=== PATIENT | female | born 1940 | race Caucasian/White ===

== ENCOUNTER 2017-02-08 11:06 | Emergency (ER) | payer MEDICARE ==
[~2017-02-08] VITALS: Ht 168.9 cm; Wt 102.0 kg
[~2017-02-08 11:06] MED LIST: AMLODIPINE10 MG PO; AMLODIPINE5 MG PO; ASPIRIN81 MG PO; CHOLESTEROL DEFENSE PO; HYDROCHLOROT12.5 MG PO; PRAVASTATIN10 MG PO
[2017-02-08] MEDS ORDERED: ULTRAM50 M1 PO (14:04)
[2017-02-08 14:14] VITALS: BP 132/68
== END 2017-02-08 14:20 | disposition home or self-care (01) ==
LOC: ED 11:06
DX: S20.212A Contusion of left front wall of thorax, initial encounter (principal); W01.0XXA Fall on same level from slipping, tripping and stumbling without subsequent striking against object, initial encounter; Y93.01 Activity, walking, marching and hiking; Y92.002 Bathroom of unspecified non-institutional (private) residence as the place of occurrence of the external cause

== ENCOUNTER 2020-08-12 07:24 | Emergency (ER) | payer MEDICARE ==
[~2020-08-12] VITALS: Ht 168.9 cm; Wt 99.0 kg
[~2020-08-12 07:24] MED LIST changes: +ULTRAM50 M1 PO
[2020-08-12 07:46] LABS: HEMATOCRIT 48.8 % (37.0-47.0); HEMOGLOBIN 15.4 g/dl (12.0-16.0); IMMATURE GRANULOCYTES 0.2 % (0.0-5.0); MEAN CELL VOLUME 89.7 fL CALC (80.0-100.0); MEAN CORPUSCULAR HGB 28.3 pG CALC (26.0-32.0); MEAN CORPUSCULAR HGB CONC 31.6 g/dL CAL (32.0-36.0); NEUT# 3.99 thou/uL (2.00-7.15); RED BLOOD COUNT 5.44 mill/uL (4.20-5.60); RED CELL DISTRI WIDTH 13.3 % (11.5-15.5)
[2020-08-12 08:01] LABS: ALBUMIN 3.9 g/dL (3.2-5.0); ALKALINE PHOSPHATASE 79 u/l (38-126); ANION GAP 10 (6-22 (CALC)); BILIRUBIN, TOTAL 0.8 mg/dL (0.0-1.4); BUN 14 mg/dL (8-23); BUN/CREATININE RATIO 26 (12-20 (CALC)); CARBON DIOXIDE 30 mmol/l (22-30); CHLORIDE 104 mmol/l (95-108); CREATININE 0.5 mg/dL (0.5-1.0); GFR > 60 ML/MIN (>=60 (CALC)); GFR FOR AFR.AMER. > 60 ML/MIN (>=60 (CALC)); SGOT/AST 22 u/l (9-36); SODIUM 139 mmol/l (137-146); TOTAL PROTEIN 6.9 g/dL (6.3-8.2)
[2020-08-12 08:11] LABS: PROTHROMBIN TIME 9.8 SECONDS (9.0-12.5)
[2020-08-12 08:13] LABS: MYOGLOBIN 30 ng/mL (0 - 62)
[2020-08-12 08:58] VITALS: BP 147/67
[2020-08-12] MEDS ORDERED: HYDROCHLOROT12.5 MG PO (09:04)
[2020-08-12] MEDS ORDERED: AMLODIPINE BESY10 MG PO (09:05)
== END 2020-08-12 09:22 | disposition home or self-care (01) ==
LOC: ED 07:24
PROVIDERS: Emergency Medicine
DX: R04.0 Epistaxis (principal); I10 Essential (primary) hypertension; E78.5 Hyperlipidemia, unspecified; T46.5X6A Underdosing of other antihypertensive drugs, initial encounter; Z91.128 Patient's intentional underdosing of medication regimen for other reason

== ENCOUNTER 2021-04-15 12:22 | Emergency (ER) | payer MEDICARE ==
[~2021-04-15] VITALS: Ht 168.9 cm; Wt 98.0 kg
[~2021-04-15 12:22] MED LIST changes: +AMLODIPINE BESY10 MG PO
[2021-04-15 14:20] VITALS: BP 130/50
== END 2021-04-15 14:20 | disposition home or self-care (01) ==
LOC: ED 12:22
DX: S80.02XA Contusion of left knee, initial encounter (principal); S80.01XA Contusion of right knee, initial encounter; I10 Essential (primary) hypertension; E78.5 Hyperlipidemia, unspecified; W01.0XXA Fall on same level from slipping, tripping and stumbling without subsequent striking against object, initial encounter; Y92.009 Unspecified place in unspecified non-institutional (private) residence as the place of occurrence of the external cause